=== PATIENT | female | born 1995 | race Caucasian/White ===

== ENCOUNTER 2023-04-27 08:49 | Observation (INO) | payer OTHER, SELFPAY ==
[2023-04-27] MEDS: MORPHINE 10 MG/ML INJ IM (09:35)
[2023-04-27] MEDS: hydrOXYzine 50 MG/ML INJ IM (09:35)
--- NOTE | 2023-04-27 09:35 | PM.OBTRLD ---
Visit Information Visit Information Date of evaluation: 04/27/23 Primary OB Provider: Zoe Orellana On-call OB Provider: Zoe Orellana Reason for Evaluation: Yes rule out labor Comments/Additional reasons for admission: Debbie is a 28 year old woman, nulliparous at 40w5d by LMP and confirmed by 11 week ultrasound. Her labor started approx 1900 on 04/26/23 while at home on [place] [address]. They took the last ferry over last night, and stayed in a hotel where she spent much of the night in the shower which helped her relax. She has a history of anxiety and panic attacks; having a very difficult time relaxing. Feeling very scared of the whole experience and unable to clarify exactly what she's scared of. Contractions feel like glass shards in her back and pelvis. Having a very difficult time relaxing. Has always held tension in her Right leg, and this leg is rotated inward with lots of tension today. Debbie has had no leaking of fluid, vaginal discharge has been copious and clear to light pink. Baby has been moving well. Vital Signs Vital Signs: BP: 132/64 HR: 90 Temp 36.8 C, temporal PFSH Medical History Panic attacks UTI (urinary tract infection) Family History (Updated 04/27/23 @ 09:47 by Zoe Orellana CNM, GERARDO) Father Cancer Social History (Updated 04/27/23 @ 09:45 by Zoe Orellana CNM, GERARDO) marital status: unmarried,living together number of children: 0 household members: significant other and children lives independently: Yes housing: house pets and animals: Yes education level: college occupational status: employed do you feel safe at home: Yes Smoking Status: Former smoker alcohol intake: former Review of Systems Review of Systems Narrative: Negative except as mentioned in HPI Exam Vital Signs (past 8 hours): see above Psych Appearance: well kempt Mental Status: mental status grossly normal Speech and Movement: speech and movement normal Mood: anxious mood Affect: anxious affect Attitude: cooperative Thought Process: normal Thought Content: normal Judgment: judgment good Evaluation Evaluation Baseline heart rate: 145 Variability: Moderate (11-25) monitor accelerations: Present Monitor Decelerations: Absent Uterine Contraction Intensity: Strong/Firm Status: Category l Cervical dilation (cm): 2 Cervical effacement (%): 80 station: -2 Diagnosis, Plan/Disposition Final Diagnosis (1) Supervision of normal first in third trimester: Status: Acute Problem details: Nullip in early labor at term GBS neg Rh neg Anxiety Fear of labor Plan/Disposition Plan: Morphine and vistaril given IM for rest and relaxation. Admission FHR with monitoring after morphine given; if normal, none required for 4 hours. Re-evaluate cervix in 4 hours. If no cervical change, discharge home. If cervical change happens, admit to L&D for labor management. OB Disposition: other
--- NOTE | 2023-04-27 15:57 | P.TNLD_ITS ---
Visit Information Visit Information Date of evaluation: 04/27/23 Primary OB Provider: Francia Pearson Reason for Evaluation: Yes rule out labor Comments/Additional reasons for admission: Debbie is a 28 year old @ 40w5d by LMP and confirmed by 11 week ultrasound. Rested comfortably after a dose of morphine and Vistaril. She is coping better with contractions by breathing, position changes, and support from her partner and mother. Her contractions have spaced out considerably. Vital Signs Vital Signs: BP: 126/71 Pulse: 83bpm Temp: 36.6*C [facility] Medical History Panic attacks UTI (urinary tract infection) Family History (Updated 04/27/23 @ 09:47 by Zoe Orellana CNM, GERARDO) Father Cancer Social History (Updated 04/27/23 @ 09:45 by Zoe Orellana CNM, GERARDO) marital status: unmarried,living together number of children: 0 household members: significant other and children lives independently: Yes housing: house pets and animals: Yes education level: college occupational status: employed do you feel safe at home: Yes Smoking Status: Former smoker alcohol intake: former Review of Systems Constitutional Constitutional: Reports system reviewed and no additional complaints, except as documented Exam Vital Signs (past 8 hours): see above Presentation: vertex Evaluation Evaluation Baseline heart rate: 145 Variability: Moderate (11-25) monitor accelerations: Present Monitor Decelerations: Early Uterine Contraction Intensity: Mild Category of Tracing: Reactive Cervical dilation (cm): 2 Cervical effacement (%): 80 station: -2 Comments: One 5 minute mild contraction in 20min of assessment Diagnosis, Plan/Disposition Final Diagnosis (1) Supervision of normal first in third trimester: Status: Acute Problem details: Term nullipara Not in active labor No indication for antibiotics Anxiety Reassuring NST Plan/Disposition Plan: Discharge to home/hotel Patient will call to check in with CNMs in 4 hours Educated on signs of active labor OB Disposition: home
== END 2023-04-27 16:20 | disposition home or self-care (01) ==
PROVIDERS: Admitting Provider Advanced Practice Midwife; Referring Provider Advanced Practice Midwife; Visit Provider Advanced Practice Midwife
DX: O99.343 Other mental disorders complicating pregnancy, third trimester (principal); F41.9 Anxiety disorder, unspecified; O48.0 Post-term pregnancy; Z3A.40 40 weeks gestation of pregnancy
CPT/HCPCS: 59025; 96372; G0378; G0379; J2270; J3410

== ENCOUNTER 2023-04-27 19:51 | Observation (INO) | payer OTHER, SELFPAY ==
--- NOTE | 2023-04-27 20:14 | PM.OBTRLD ---
Visit Information Visit Information Date of evaluation: 04/27/23 Primary OB Provider: Zoe Orellana On-call OB Provider: Zoe Orellana Reason for Evaluation: Yes rule out labor Comments/Additional reasons for admission: Debbie is a 28 year old nullip by LMP here for labor evaluation. Just came from dinner. She is getting more anxious and having a more difficult time with contractions. Back in L&D unit for evaluation and morphine/vistaril for rest therapy per her desire since it helped her earlier today. Vital Signs Vital Signs: BP 129/71 RR 18/min HR 94 bpm Temp 36.0 C, temporal PFSH Medical History (Updated 04/27/23 @ 20:25 by Zoe Orellana CNM, GERARDO) Anxiety Panic attacks UTI (urinary tract infection) Family History Father Cancer Social History marital status: unmarried,living together number of children: 0 household members: significant other and children lives independently: Yes housing: house pets and animals: Yes education level: college occupational status: employed do you feel safe at home: Yes Smoking Status: Former smoker alcohol intake: former Review of Systems Review of Systems Narrative: Negative except as mentioned above. Exam Narrative Exam Narrative: see above Psych Appearance: grossly normal Mental Status: mental status grossly normal and other Speech and Movement: speech and movement normal Mood: anxious mood and other Affect: anxious affect Attitude: cooperative Thought Process: normal Thought Content: normal Judgment: judgment good Evaluation Evaluation Baseline heart rate: 145 Variability: Moderate (11-25) monitor accelerations: Present Monitor Decelerations: Variable (non recurrent) Contraction Frequency (minutes): 10 Uterine Contraction Intensity: Moderate Status: Category l Cervical dilation (cm): 2.5 Cervical effacement (%): 80 station: -1 Diagnosis, Plan/Disposition Final Diagnosis (1) Supervision of normal first in third trimester: Status: Acute Problem details: Term nullipara Not in active labor History of and current anxiety No indication for antibiotics Anxiety FHR Cat 1 Plan/Disposition Plan: Morphine and vistaril medications IM for rest/anxiety Discharge home with instructions to alternate rest and activity while awake but to try and sleep tonight Return to unit with regular contractions or ROM
[2023-04-27] MEDS: hydrOXYzine 50 MG/ML INJ IM (20:24)
[2023-04-27] MEDS: MORPHINE 10 MG/ML INJ IM (20:24)
== END 2023-04-27 20:40 | disposition home or self-care (01) ==
LOC: LABOR 19:53
PROVIDERS: Admitting Provider Advanced Practice Midwife; Referring Provider Advanced Practice Midwife; Visit Provider Advanced Practice Midwife
DX: O99.343 Other mental disorders complicating pregnancy, third trimester (principal); F41.9 Anxiety disorder, unspecified; O48.0 Post-term pregnancy; Z3A.40 40 weeks gestation of pregnancy
CPT/HCPCS: 59025; 96372; G0378; G0379; J2270; J3410

== ENCOUNTER 2023-04-28 06:08 | Inpatient (IN) | payer OTHER, SELFPAY ==
--- NOTE | 2023-04-28 06:47 | PM.OBHP.1 ---
OB HPI Date/Time Date of admission: 04/28/23 Date Patient Seen: 04/28/23 Time Patient Seen: 06:47 History of Present Condition Chief complaint: : 1 Para: 0 Estimated Date of Delivery: 04/22/23 Estimated Gestational Age (weeks): 40w6d Narrative: Debbie Salinas is a 28 year old female at 40w6d by sure LMP and concordant with 11 week US here for evaluation of labor. Contractions started 04/26, her and her partner Bahman came [place]. She labored through the evening and came to the hospital on 04/27 where she was observed in triage for several hours and received theraputic rest. She was discharged not in labor and returned later in the evening for assessment, still early labor by cervical exam and was given a second dose of morphine and Vistaril and discharged to labor through the night. She arrived this morning visibly in pain and tired and requesting epidural for management. Reports that contractions have been painful and regular since midnight, coping by showering and took a benadryl approx 0200. Denies leaking of fluid or blood. Reports positive movement. Well supported by her partner and FOB, Bahman, at bedside. Uncomplicated care with CNMs established at 11 weeks. History of Present care: good care, initiated at week # (11), number of visits (9) and pounds weight gain (36) Dating criteria: LMP confirmed by 1st trimester US Ultrasounds: normal 1st trimester US and normal mid trimester US Obstetrical complications: other (prolonged early labor) Medical complications: none Preadmission Labs Blood type: A (-) negative -: Antibody screen: negative, Cystic fibrosis screen: negative, GBS status: negative, HBsAG: negative, HIV: negative and RPR/VDLR: negative -: Chlamydia screen: not detected and Gonorrhea screen: not detected -: Rubella: immune and Varicella: immune HCT: 11.7 HCAB: negative PAP: Normal Cell-free DNA: negative Urine: negative 1 hr GTT: 126 Narrative: HbA1c 5.2 Evaluation Evaluation Baseline heart rate: 145 Variability: Moderate (11-25) monitor accelerations: Present Monitor Decelerations: Absent Contraction Frequency (minutes): 3 Uterine Contraction Intensity: Moderate Status: Category l Dilation (cm): 4 Effacement (%): 100 Dilation: 3-4 cm Effacement: >/=80% station: -2 Position of cervix: mid Consistency: soft Cardozo score: 9 Comments: Patient with a history of not tolerating cervical exams well, so plan made to check cervix after comfortable with epidural. [facility] Medical History Anxiety Panic attacks UTI (urinary tract infection) Family History Father Cancer Social History marital status: unmarried,living together number of children: 0 household members: significant other and children lives independently: Yes housing: house pets and animals: Yes education level: college occupational status: employed do you feel safe at home: Yes Smoking Status: Former smoker alcohol intake: former Meds Home Medications and Allergies Allergies Allergy/AdvReac Type Severity Reaction Status Date / Time Latex, Natural Rubber AdvReac Verified 04/27/23 09:29 Review of Systems Review of Systems ROS: Yes All systems reviewed with the patient and are negative except as otherwise documented OB Exam Vital signs Blood Pressure: 120/76 Pulse Rate: 80 Respiratory Rate: 18 Temperature: 36.8 F Resp Effort & Inspection: normal respiratory effort and able to speak in complete sentences Auscultation: clear to auscultation bilaterally Cardio Rate: regular rate Rhythm: regular rhythm Heart Sounds: S1 normal, S2 normal and normal, physiologic split S2 Extremities DTR's: Rt Patellar: 2+ and Lt Patellar: 2+ GI Other: Gravid uterus Objective Labs 04/28/23 07:15 Assessment and Plan Assessment and Plan Assessment and Plan narrative: A: Term nullip Early labor assumed Membranes intact Rh negative GBS negative FHR Cat I Anxiety History of panic attacks At risk for mood disorder P: Admit for labor, routine admin orders Epidural for pain management Assess labor with cervical exam once resting comfortably Educated on possible tools for augmentation and likelihood of using them FHR by continuous EFM Anticipate NSVB
[2023-04-28 07:22] LABS: Add Manual Diff / Slide Review NO; Basophils Absolute Auto 100 /uL (0-100); Basophils Percent Auto 0.4 % (0-2); Eosinophils Absolute Auto 200 /uL (0-450); Eosinophils Percent Auto 1.1 % (2-4); Hematocrit 35.4 % (36-46); Hemoglobin 12.1 g/dL (12.0-16.0); Lymphocytes Absolute Auto 2900 /uL (1100-4500); Lymphocytes Percent Auto 16.3 % (25-40); Mean Corpuscular HGB Conc 34.3 % (30-36); Mean Corpuscular Hemoglobin 31.3 PG (26-34); Mean Corpuscular Volume 91.4 fL (80-100); Monocytes Absolute Auto 1200 /uL (0-900); Monocytes Percent Auto 6.9 % (3-14); Neutrophils Absolute Auto 13500 /uL (1500-7000); Neutrophils Percent Auto 75.3 % (50-75); Platelet Count 260 X10^3/uL (150-400); Red Blood Cell Count 3.88 X10^6/uL (4.0-5.2); Red Cell Distribution Width 13.2 % (11.6-14.8); White Blood Cell Count 17.9 X10^3/uL (4.5-11.0)
[2023-04-28 07:32] VITALS: BP 120/76; PULSE 80; RESP 18; TEMP 2.7; TEMP 36.8
--- NOTE | 2023-04-28 07:55 | P.PCN_ITS ---
Regional Block Pre-procedure Procedure: Continuous Lumbar Epidural for L&D Attending OB provider: Zoe Orellana PMH/ROS narrative: term labor, no complications, no sig PMH. ASA Class: II Labs: Hct 35.4 % (36-46) L 04/28/23 07:15 Plt Count 260 X10^3/uL (150-400) 04/28/23 07:15 Medications: Current Medications Generic Name Dose Route Start Last Admin Trade Name Freq PRN Reason Stop Dose Admin Calcium Carbonate 1,000 mg 04/28/23 06:44 Calcium Carbonate 500 Mg Tab PO Q4HR PRN Dyspepsia Carboprost Tromethamine 250 mcg 04/28/23 06:44 Carboprost 250 Mcg/Ml Ampul IM Q90M PRN Bleeding Fentanyl 100 mcg 04/28/23 06:44 Fentanyl 100 Mcg/2 Ml Inj IV Q1H PRN Pain, Severe (7-10) Oxytocin/Lactated Ringer's 30 unit in 500 mls @ 200 mls/hr 04/28/23 06:44 Oxytocin Premix IV CONT PRN Bleeding Protocol Tranexamic Acid 1,000 mg/ 100 mls @ 200 mls/hr 04/28/23 06:44 Sodium Chloride IV NOW PRN Bleeding Oxytocin/Lactated Ringer's 30 unit in 500 mls @ 2 mls/hr 04/28/23 06:45 Oxytocin Premix IV TITRATE KARL Protocol 2 MILLIUNIT/MIN Lactated Ringer's 1,000 mls @ 100 mls/hr 04/28/23 06:45 Lactated Ringers IV CONT KARL Lidocaine HCl 20 ml 04/28/23 06:44 Lidocaine 1% 20 Ml INJ INTRA-OP PRN Post Delivery Methylergonovine Maleate 0.2 mg 04/28/23 06:44 Methylergonovine 0.2 Mg Tablet PO Q6HR PRN Heavy Bleeding Methylergonovine Maleate 0.2 mg 04/28/23 06:44 Methylergonovine 0.2 Mg/Ml Vial IM NOW PRN Bleeding Misoprostol 800 mcg 04/28/23 06:44 Misoprostol 200 Mcg Tablet WI NOW PRN Bleeding Misoprostol 400 mcg 04/28/23 06:44 Misoprostol 200 Mcg Tablet SL NOW PRN Bleeding Naloxone HCl 0.2 mg 04/28/23 06:44 Naloxone 0.4 Mg/Ml Vial IV Q2MIN PRN Opiate Reversal Ondansetron HCl 8 mg 04/28/23 12:00 Ondansetron 4 Mg/2 Ml Inj IV Q6HR KARL Oxytocin 10 unit 04/28/23 06:44 Oxytocin 10 Unit/Ml Vial IM NOW PRN Bleeding Allergies: Allergies Allergy/AdvReac Type Severity Reaction Status Date / Time Latex, Natural Rubber AdvReac Verified 04/27/23 09:29 Procedure Insertion date: 04/28/23 Insertion time: 08:15 Prep/Local: betadine x3 and 1% lidocaine Interspace: L34 Patient position: sitting Needle: 18 gauge [employer] [place] (CSE: 27g pencan through [place], clear CSF, 2.5mg MPF bupiv) Loss of resistance with: saline ALLYSSA at (cm): 6 Catheter placed at SKIN (cm): 12 Catheter in SPACE (cm): 6 Insertion: No CSF, No Blood, No Paresthesia with insertion, No Paresthesia with injection and No Test dose reaction Initial Medications TEST DOSE time: 08:16 TEST DOSE: 1.5% lidocaine with epinephrine 1:200k (mL): 3 BOLUS DOSE time: 08:26 BOLUS DOSE (mL): 4 BOLUS DOSE med: other (infusate) Infusion INFUSION: 0.125% bupivacaine and with fentanyl 2 mcg/mL Initial rate (mL/hr): 10 Subsequent interventions: PCEA@ 4 rate to 12 1730 2035 50mcg fentanyl, 4mL 0.25% bupiv Post-procedure Anesthesia time START: 08:01 Anesthesia time END: 23:00 Post-procedure Anesthesia Assessment: Yes CV function: HR/BP stable, Yes Resp function: RR/sat/airway adequate, Yes Post-op hydration adequate, Yes Pain control adequate, Yes Nausea & vomiting absent, Yes Temperature > 36 C, Yes Mental status appropriate and No Anesthesia complications
[2023-04-28] MEDS: FENT 2MCG/ML BUPIV 0.125% EPI 200 MCG/100 ML PLAST..BAG 6 MCG EPIDURAL ×2 (08:30→17:32)
[2023-04-28] MEDS: hydrOXYzine pamoate 25 MG CAPSULE 50 MG PO ×2 (10:37→17:30)
[2023-04-28] MEDS: OXYTOCIN PREMIX 30 UNIT/500 ML PLAST..BAG IV (14:22)
--- NOTE | 2023-04-28 17:28 | PM.OBPNLAB ---
Date/Time Date Patient Seen: 04/28/23 Time Patient Seen: 17:00 Pain Control Pain control: epidural Comments: Feeling contractions on R side and continued pressure. ctr. Pelvic Exam Dilation (cm): 8 Effacement (%): 100 station: 0 Amniotic membrane status: Ruptured (SROM at 1600, clear fluid) Contractions Date/Time contractions began: Contractions spaced out earlier today so low-dose pitocin started approx 1300. Monitor mode: External Pitocin rate (mU/min): 4 Contraction frequency (min): 3 Contraction duration (min): 60 Contraction pattern: Regular Contraction intensity: Moderate Status status: Category l Heart Rate Baseline: 145 Monitor Accelerations: Present Monitor Decelerations: Early and Late (non-recurrent) Monitor Variability: Moderate Assessment and Plan Assessment: active labor Plan: continuous present management
--- NOTE | 2023-04-28 19:46 | PM.OBPNLAB ---
Date/Time Date Patient Seen: 04/28/23 Time Patient Seen: 19:40 Pain Control Pain control: epidural Comments: Debbie is resting comfortably on her left side with peanut ball between her ankles, feeling increasing rectal pressure and low back pain. She is well supported by her partner, Bahman, her mom and her mom's senior staff consultant boyfriend. Pelvic Exam Dilation (cm): 9 Effacement (%): 100 station: +1 Amniotic membrane status: Ruptured (SROM at 1600, clear fluid) Comments: Edema in anterior cervical lip, AARON position, clear amniotic fluid. Contractions Monitor mode: External Pitocin rate (mU/min): 2 Contraction frequency (min): 2 Contraction pattern: Regular Contraction intensity: Strong/Firm Status status: Category ll Heart Rate Baseline: 155 Monitor Accelerations: Present Monitor Decelerations: Early, Late and Prolonged Monitor Variability: Moderate Comments: Fetus rotating in pelvis. Assessment and Plan Assessment: active labor Plan: continuous present management and other (turned pitocin down and not off d/t decelerations. ) Comments: A: Term nulliparous Active labor Ruptured membranes Anxiety FHR Cat II P: Turn off pitocin Position changes to support decent Educated on second stage and third management, coaching, and support Continuous EFM Plan for NSVB
[2023-04-28 22:20] VITALS: TEMP 38.4
[2023-04-28] MEDS: ACETAMINOPHEN 325 MG TABLET 975 MG PO (22:20)
--- NOTE | 2023-04-28 22:25 | PM.OBPNLAB ---
Date/Time Date Patient Seen: 04/28/23 Time Patient Seen: 22:25 Pain Control Pain control: epidural Pelvic Exam Dilation (cm): 10 Effacement (%): 100 station: +1 Amniotic membrane status: Ruptured (SROM at 1600, clear fluid) Comments: Temp 101.1 Other VS stable Contractions Monitor mode: External Pitocin rate (mU/min): 0 Contraction frequency (min): 3 Contraction pattern: Regular Contraction intensity: Strong/Firm Status status: Category ll Heart Rate Baseline: 160 Monitor Accelerations: Absent Monitor Decelerations: Late and Variable (deep variables) Monitor Variability: Minimal Comments: FHR baseline difficult to assess from 2142 until present tie. Moderate variability is decreasing and more often is minimal at this time. Some tachycardia, 2 min variable decelerations with telma in the 80s. Assessment and Plan Assessment: other (2nd stage labor) Comments: Plan: Treat for IAI with acetaminophen, Ampicillin, gentamicin, ordered. CBC with diff ordered. Consult with Dr. Justin, OB, regarding evaluation for operative delivery or primary Push with every other contractions.
[2023-04-28 22:57] LABS: Add Manual Diff / Slide Review NO; Basophils Absolute Auto 100 /uL (0-100); Basophils Percent Auto 0.3 % (0-2); Eosinophils Absolute Auto 0 /uL (0-450); Eosinophils Percent Auto 0.1 % (2-4); Hematocrit 34.4 % (36-46); Hemoglobin 11.7 g/dL (12.0-16.0); Lymphocytes Absolute Auto 1700 /uL (1100-4500); Lymphocytes Percent Auto 7.9 % (25-40); Mean Corpuscular HGB Conc 34.1 % (30-36); Mean Corpuscular Volume 91.1 fL (80-100); Monocytes Absolute Auto 1300 /uL (0-900); Monocytes Percent Auto 5.8 % (3-14); Neutrophils Absolute Auto 18800 /uL (1500-7000); Neutrophils Percent Auto 85.9 % (50-75); Platelet Count 262 X10^3/uL (150-400); Red Blood Cell Count 3.78 X10^6/uL (4.0-5.2); White Blood Cell Count 21.9 X10^3/uL (4.5-11.0)
[2023-04-28] MEDS: TRANEXAMIC ACID 1,000 MG in SODIUM CHLORIDE 0.9% 100 ML 200 MG IV (23:16)
--- NOTE | 2023-04-28 23:27 | PM.CN ---
History of Present Illness Consult details Date Patient Seen: 04/28/23 Time Patient Seen: 22:45 Chief complaint: Reason for consult: Vacuum assisted vaginal delivery Requesting provider: Zoe Orellana Narrative: Patient is a 28-year-old G1 after prolonged labor began pushing at 21:33. Maternal temperature increased to 101 at 10:00 p.m. she was given Tylenol and antibiotics ordered. With pushing the fetus had severe prolonged decelerations and decreased variability. An hour prior to delivery meconium was 1st noted. Meds Home Medications and Allergies Allergies Allergy/AdvReac Type Severity Reaction Status Date / Time Latex, Natural Rubber AdvReac Verified 04/27/23 09:29 Exam Vital Signs (past 8 hours): - 04/28/23 22:20 Temperature 101.1 F H Narrative Exam Narrative: Patient complete and +2 station, IRENE position. Patient agreed to proceed with vacuum extraction for category 3 tracing. She was placed in stirrups. Zoe Orellana CNM was assisted in placing the vacuum. With 1 pull the head was delivered easily with support of the perineum. The baby was then placed on maternal abdomen. Objective Labs 04/28/23 22:39 Labs: Laboratory Results - last 24 hr 04/28/23 04/28/23 04/28/23 07:15 07:15 22:39 WBC 17.9 H 21.9 H RBC 3.88 L 3.78 L Hgb 12.1 11.7 L Hct 35.4 L 34.4 L MCV 91.4 91.1 MCH 31.3 31.0 MCHC 34.3 34.1 RDW 13.2 13.0 Plt Count 260 262 Neut % (Auto) 75.3 H 85.9 H Lymph % (Auto) 16.3 L 7.9 L Harnett % (Auto) 6.9 5.8 Eos % (Auto) 1.1 L 0.1 L Baso % (Auto) 0.4 0.3 Neut # (Auto) 69225 H 95115 H Lymph # (Auto) 2900 1700 [place]ett # (Auto) 1200 H 1300 H Eos # (Auto) 200 0 Baso # (Auto) 100 100 Blood Type A Negative Antibody Screen Negative [facility] Medical History Anxiety Panic attacks UTI (urinary tract infection) Family History Father Cancer Social History marital status: unmarried,living together number of children: 0 household members: significant other and children lives independently: Yes housing: house pets and animals: Yes education level: college occupational status: employed Safety do you feel safe at home: Yes Tobacco & Substance Use Smoking Status: Never smoker alcohol intake: former Assessment & Plan Assessment and plan (1) Category III heart rate tracing during labor and delivery: Status: Acute Assessment & Plan narrative: Category 3 tracing with pushing. Vacuum assisted delivery was performed. Infant and mother doing well. Time Spent With Patient Time with patient: less than 30 minutes
--- NOTE | 2023-04-28 23:57 | PM.OBPRVD ---
Events: Labor Augmentation and Other (significant maternal anxiety) Labor & Delivery Delivery date: 04/28/23 Intrapartal Events: Prolonged Latent Phase, Extended Tachycardia, Chorioamnionitis, Intolerance, Abnormal Labs and Deceleration Cervical ripening method: none Delivery augmentation: pitocin Delivery monitor: external FHT and external uterine Route of delivery: vacuum extraction Indication for instrumentation: nonreassuring FHR tracing L&D Laceration Description: Periurethral - 1st Degree, Vaginal - 2nd Degree and Labial Delivery repair: vicryl Anesthesia Type: Epidural Narrative: Labor progressed well. Debbie felt increased rectal pressure and was found to have an edematous anterior lip that was reducible. Pushed effectively with good maternal effort and coaching from SNM, CNM, and nurse. Well supported by FOB, her mother and her mother's boyfriend. FHR was Cat II through second stage. Debbie became febrile and FHR became tachycardic with moderate to minimal variability and repetitive late and prolonged decelerations. Meconium stained fluid was noted and RT was notified to come to delivery. Infection protocol was started and physician credit consultant was called. Debbie was coached to push every other contraction to let the FHR return to baseline. After fluid bolus, Tylenol, and position changes the fetus was still not tolerating pushing. Doctor Margoth arrived to the bedside for consultation (see her note). Debbie was educated on vacuum delivery and consented. She was placed in lithotomy and legs placed in stirrups. Vacuum was placed by CNM, supervised by OB. Baby boy was delivered by vacuum extraction with one pull, no pop offs, and maternal pushing. The baby was brought to the maternal abdomen for warming, drying, and stimulation. There was no respiratory effort, limp tone, and blue in color so cord was double clamped and cut, baby brought to the warmer for respiratory support including bulb suction, Delee, CPAP, PPV; once she arrived, RT led resuscitation and collected cord gases. Pitocin administered per protocol. Placenta was spontaneously delivered at 5 min, [place], appeared to be intact upon inspection with a 3VC. Fundus was firm at U with minimal bleeding. Upon inspection the perineum was intact, shallow bilateral periurethral lacerations, 2nd degree vaginal tear and left labial tear. Vaginal laceration was bleeding. Vaginal and labial tear repaired with 3-0 vicryl suture. Annia and continued trickle of bleeding with uterine massage. TXA given. Blood loss measured and QBL 477mL. Baby was brought skin to skin when he was stable. Mom and baby left stable and breast feeding is being initiated. Debbie and Bahman are thrilled to meet baby Nikitaoxe. Maternal labs showed elevated WBCs, suspicious of IAI. Antibiotics were not given d/t speed of delivery. Placenta sent to pathology. labs showed acidemia, but above 7.0pH, not indicating a need for cooling per protocol. Base deficit of 14mmol/L is over recommended 12mmol/L - Pediatric provider ultrasound technologist sonographer notified. Thorough neurological exam completed with no deficits. Zoe CARRILLO, CNM, IBCLC Shannan Mendieta RN, SNM Diamond Baby 1: Infant gender: Male Presentation: vertex Position: Left Occiput Anterior Placenta delivery description: Spontaneous Cord Vessel Description: 3 Vessels score (1 min): 3 score (5 min): 6 score (10 min): 8 weight: 3520 kg Plan for aftercare: Routine care
[2023-04-29] MEDS: DERMOPLAST SPRAY 20% 60 ML 1 SPRAY TOP (00:45)
[2023-04-29] MEDS: KETOROLAC 30 MG/ML VIAL IV (00:46)
[2023-04-29] MEDS: ESCITALOPRAM 10 MG TABLET PO ×2 (01:00→21:19)
[2023-04-29] MEDS: IBUPROFEN 600 MG TABLET PO ×3 (06:33→21:18)
[2023-04-29] MEDS: ACETAMINOPHEN 325 MG TABLET 975 MG PO ×2 (06:33→18:21)
--- NOTE | 2023-04-29 18:26 | PM.OBPN.1 ---
Subjective - OB Subjective Interval history: Debbie doing well today. Bleeding decreasing, feeling sore on L labia otherwise feeling good. Reports that baby is not well but she is making lots of colostrum for him. Mood is much better. Asks about s/e of Lexapro. Exam Vital Signs (past 8 hours): BP 123/80 HR 79 bpm RR 14/min T 98.3 F Other: Fundus firm at U, midline. Lochia moderate Perineum intact, labial laceration healing well, vulva with moderate edema Objective Labs 04/28/23 22:39 Labs: Laboratory Results - last 24 hr 04/28/23 04/29/23 22:39 11:45 WBC 21.9 H RBC 3.78 L Hgb 11.7 L Hct 34.4 L MCV 91.1 MCH 31.0 MCHC 34.1 RDW 13.0 Plt Count 262 Neut % (Auto) 85.9 H Lymph % (Auto) 7.9 L Armstrong % (Auto) 5.8 Eos % (Auto) 0.1 L Baso % (Auto) 0.3 Neut # (Auto) 13548 H Lymph # (Auto) 1700 Armstrong # (Auto) 1300 H Eos # (Auto) 0 Baso # (Auto) 100 Maternal Bleed Negative Assessment & Plan Assessment and Plan (1) Mother currently breast-feeding: Start date: 04/28/23 Status: Acute (2) Laceration of labia majora: Start date: 04/28/23 Status: Acute Plan day: 1 plan OB: routine care Comments: Plan discharge home tomorrow. Lexapro shi. Time Spent With Patient Time: Total time spent is greater than 50% in coordination of care (as documented) at patient's floor/unit and/or counseling patient: Time with patient: 25 - 35 minutes
[2023-04-30] MEDS: ACETAMINOPHEN 325 MG TABLET 975 MG PO (04:42)
[2023-04-30] MEDS: IBUPROFEN 600 MG TABLET PO ×2 (04:43→11:03)
--- NOTE | 2023-04-30 10:42 | PM.OBPN.1 ---
Subjective - OB Subjective Narrative: Debbie reports a rough night with baby, but feeling good this morning. Gave formula overnight. Just finished pumping. Baby not doing well at breast; Bahman reports that one of his other sons did not breastfeed for his first month. Labial laceration is tender, feels tight with sitting and walking. Date Patient Seen: 04/30/23 Time Patient Seen: 09:45 Exam Vital Signs (past 8 hours): BP 114/64 HR 63 bpm RR 14 Temp 96.8 F Other: Fundus firm at U, midline. Lochia scant Perineum intact, labial laceration with decreasing edema Skin General: no rashes or lesions noted Psych Appearance: grossly normal Mental Status: mental status grossly normal Speech and Movement: speech and movement normal Mood: anxious mood and manic mood Affect: normal affect Attitude: cooperative Thought Process: normal Thought Content: normal Judgment: judgment good Objective Labs 04/28/23 22:39 Labs: Laboratory Results - last 24 hr 04/29/23 11:45 Maternal Bleed Negative Assessment & Plan Assessment and Plan (1) Mother currently breast-feeding: Status: Acute (2) Laceration of labia majora: Status: Acute Assessment and plan: Recommend sitz baths 3-5 times per day. (3) RhD negative: Status: Acute Assessment and plan: Rhogam prior to discharge. Plan day: 1 plan OB: routine care Comments: Discharge home today. Time Spent With Patient Time: Total time spent is greater than 50% in coordination of care (as documented) at patient's floor/unit and/or counseling patient: Time with patient: 15-24 minutes
[2023-04-30] MEDS: RHO(D) IMMUNE GLOBULIN 1,500 UNIT SYRINGE 1500 UNIT IM (10:59)
--- NOTE | 2023-04-30 13:34 | PM.OBPNLAB ---
Date/Time Date Patient Seen: 04/28/23 Time Patient Seen: 13:00 Pain Control Pain control: epidural Comments: Late entry to complete chart Pelvic Exam Effacement (%): 100 station: +1 Amniotic membrane status: Ruptured (SROM at 1600, clear fluid) Comments: Exam not peformed at this time. Contractions Monitor mode: External Pitocin rate (mU/min): 0 Contraction frequency (min): 7 Contraction pattern: Regular Contraction intensity: Moderate Status status: Category ll Heart Rate Baseline: 150 Monitor Accelerations: Present Monitor Decelerations: Absent Monitor Variability: Moderate Comments: Contractions have spaced out. RN requesting to initiate pitocin augmentation. Assessment and Plan Assessment: other (Early labor of term nullip) Plan: begin patient augmentation Comments: GBS negative FHR Cat 1 Rh negative Elevated WBC on admission Plan: Initiate pitocin augmentation Continuous monitoring with epidural in place VS q 4 hours unless abnormal, then q 2 hours
== END 2023-04-30 12:10 | disposition home or self-care (01) | DRG 805 ==
PROVIDERS: Admitting Provider Advanced Practice Midwife; Referring Provider Advanced Practice Midwife; Visit Provider Advanced Practice Midwife
DX: O76 Abnormality in fetal heart rate and rhythm complicating labor and delivery (principal); O41.1230 Chorioamnionitis, third trimester, not applicable or unspecified; Z37.0 Single live birth; O48.0 Post-term pregnancy; Z3A.40 40 weeks gestation of pregnancy; O99.343 Other mental disorders complicating pregnancy, third trimester; F41.9 Anxiety disorder, unspecified; O70.1 Second degree perineal laceration during delivery; O71.82 Other specified trauma to perineum and vulva
CPT/HCPCS: 36415; 59025; 59050; 85025; 85461; 86850; 86900; 86901; 96372; 99232; G0378; G0379; J1885; J2270; J2590; J2790; J3410

== ENCOUNTER 2023-09-27 10:23 | Emergency (ER) | payer OTHER, MEDICAID, SELFPAY ==
[2023-09-27 10:35] VITALS: BP 120/81; PULSE 97; RESP 15; TEMP 36.6; O2SAT 100; BMI 26.6
--- NOTE | 2023-09-27 10:39 | DI.RAD.S_ITS ---
PROCEDURE: XR CHEST 1V INDICATIONS: chest pain TECHNIQUE: One view of the chest was acquired. COMPARISON: None. FINDINGS: Surgical changes and devices: None. Lungs and pleura: Lungs are clear. No pleural effusions or pneumothorax. Mediastinum: Mediastinal contours appear normal. Heart size is normal. Bones and chest wall: No suspicious bony lesions. Overlying soft tissues appear unremarkable. IMPRESSION: No acute process. Dictated by: Jerry Durham M.D. on 09/27/2023 at 11:29 Approved by: Jerry Durham M.D. on 09/27/2023 at 11:29
[2023-09-27 11:02] LABS: Add Manual Diff / Slide Review NO; Basophils Absolute Auto 0 /uL (0-100); Basophils Percent Auto 0.6 % (0-2); Eosinophils Absolute Auto 100 /uL (0-450); Eosinophils Percent Auto 1.4 % (2-4); Hematocrit 38.9 % (36-46); Hemoglobin 13.2 g/dL (12.0-16.0); Lymphocytes Absolute Auto 1300 /uL (1100-4500); Lymphocytes Percent Auto 20.5 % (25-40); Mean Corpuscular Hemoglobin 30.1 PG (26-34); Mean Corpuscular Volume 88.5 fL (80-100); Monocytes Absolute Auto 500 /uL (0-900); Monocytes Percent Auto 8.6 % (3-14); Neutrophils Absolute Auto 4300 /uL (1500-7000); Neutrophils Percent Auto 68.9 % (50-75); Platelet Count 311 X10^3/uL (150-400); Red Blood Cell Count 4.39 X10^6/uL (4.0-5.2); White Blood Cell Count 6.2 X10^3/uL (4.5-11.0)
[2023-09-27 11:23] LABS: Alanine Aminotransferase 19 IU/L (<35); Albumin 4.6 g/dL (3.5-5.0); Albumin Globulin Ratio 1.4 (1.0-2.8); Alkaline Phosphatase 94 U/L (38-126); Aspartate Aminotransferase 20 IU/L (14-36); Bilirubin Total 0.5 mg/dL (0.2-1.3); Blood Urea Nitrogen 11 mg/dL (7-17); Calcium 9.8 mg/dL (8.4-10.2); Carbon Dioxide 23 mmol/L (22-32); Chloride 105 mmol/L (98-107); Creatine Kinase 52 U/L (30-135); Estimated Glomerular Filt Rate > 60 mL/min (>60); Globulin 3.3 g/dL (1.7-4.1); Glucose 98 mg/dL (70-100); HEMOLYSIS < 15 (0-50); Lipase 113 U/L (23-300); Magnesium 1.7 mg/dL (1.6-2.3); Potassium 3.9 mmol/L (3.4-5.1); Sodium 139 mmol/L (137-145); Total Protein 7.9 g/dL (6.3-8.2)
[2023-09-27 11:30] LABS: INR 1.1 (0.9-1.3); Prothrombin Time 12.7 SECONDS (9.4-12.5)
[2023-09-27 11:33] LABS: PTT Partial Thromboplastin Tim 29 SECONDS (25.1-36.5)
[2023-09-27 12:40] LABS: Troponin I < 0.012 ng/mL (0.01-0.034)
== END 2023-09-27 10:55 | disposition left against medical advice (07) ==
PROVIDERS: Emergency Provider Emergency Medicine
DX: R07.9 Chest pain, unspecified (principal)
CPT/HCPCS: 71045; 80053; 82550; 83690; 83735; 84484; 85025; 85610; 85730; 99281